=== PATIENT | male | born 1955 | race Caucasian/White ===

== ENCOUNTER 2022-05-21 12:54 | Outpatient (REF) | payer OTHER, SELFPAY ==
--- NOTE | ~2022-05-21 | XR_ITS ---
EXAMINATION: XR KNEE, LEFT CLINICAL INFORMATION: Left knee pain COMPARISON: None TECHNIQUE: Four views of the left knee. FINDINGS: Bones and soft tissues are normal. No fracture or joint effusion. Alignment is anatomic. Joint spaces are well maintained aside from some minimal narrowing of the medial compartment. No abnormal soft tissue calcification. XR/XR knee LT 2V IMPRESSION: Minimal narrowing of the medial compartment.
--- NOTE | ~2022-05-21 | XR_ITS ---
EXAMINATION: XR LUMBOSACRAL SPINE CLINICAL INFORMATION: Low back pain, unspecified COMPARISON: None TECHNIQUE: Three views of the lumbosacral spine. FINDINGS: Marked degenerative changes are present in the spine most marked at L2-L3 with marked sclerosis and disc space narrowing. There is mild grade 1 anterolisthesis of L3 upon L4. No bony destructive lesions. No fractures. 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
== END 2022-05-21 12:55 | disposition home or self-care (01) ==
LOC: HO.HMGCX 12:54
PROVIDERS: PCP Internal Medicine; Visit Provider Nurse Practitioner Family
DX: M54.50 Low back pain, unspecified (principal); M79.605 Pain in left leg; M25.562 Pain in left knee; M79.604 Pain in right leg
CPT/HCPCS: 72100; 73560